=== PATIENT | male | born 1970 | race Caucasian/White ===

== ENCOUNTER 2020-03-08 10:16 | Inpatient (IN) | payer MEDICAID, SELFPAY ==
[2020-03-08 10:17] VITALS: BP 142/96; PULSE 95; RESP 18; TEMP 36.8; O2SAT 97; BMI 28.9
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
[2020-03-08] MEDS: 0.9% Normal Saline 1,000 ML 1000 ML IV (10:51)
[2020-03-08] MEDS: Ondansetron 4 MG/2 ML Vial IV (10:52)
[2020-03-08] MEDS: Morphine 4 MG/ML Syringe IV ×2 (10:52→11:40)
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
--- NOTE | 2020-03-08 10:56 | ED.RN ---
PT CONTINUES TO CARE ABOUT HIS CARE AT [place].
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
[2020-03-08] MEDS: Cefazolin 1 GM/50 ML BAG IV (11:30)
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
[2020-03-08 11:42] VITALS: BP 143/93; PULSE 83; RESP 18; TEMP 37.1; O2SAT 97; BMI 28.9
--- NOTE | 2020-03-08 11:53 | ED.RN ---
PER PT, 2 ATTEMPTS TO CONTACT MOTHER, YANELI, TO INFORM HER THAT HE IS GOING TO SURGERY. [phone], .
[2020-03-08 11:55] VITALS: BP 143/93; PULSE 83; RESP 18; TEMP 37.1; O2SAT 97
[2020-03-08 12:15] LABS: Absolute Lymphocyte Count 2.22 X10^3/uL (0.83-4.51); Absolute Neutrophil Count 5.5 X10^3/uL (2.0-7.7); Basophil# 0.04 X10^3/uL; Basophil% 0.5 % (0-1); Eosinophil# 0.06 X10^3/uL; Eosinophils% 0.7 % (0-5); Hematocrit 43.8 % (40-54); Lymphocyte # 2.22 X10^3/ul (4.0); Lymphocyte % 26.1 % (19-41); Mean Corp Hgb Conc 34.2 g/dL (32-36); Mean Corpuscular Hgb 34.2 pg (27.0-32.0); Mean Platelet Vol. 9.7 fl (6.2-12.0); Monocyte# 0.68 X10^3/uL; NRBC Flagged by Analyzer 0 % (0-5); Neutrophil # 5.49 X10^3/uL (2.7-7.7); Neutrophil % 64.6 % (47-70); Platelet Count 267 K/mm3 (150-450); RBC Distribution Width CV 13.6 % (11.6-14.6); RBC Distribution Width SD 50.1 fl (35.1-43.9); Red Blood Count 4.38 M/mm3 (4.6-6.2); White Blood Count 8.5 K/mm3 (4.4-11.0)
[2020-03-08 12:18] LABS: International Normalized Ratio 1.1; Prothrombin Time (Protime)PT. 13.4 SECONDS (11.7-14.9)
[2020-03-08 12:26] LABS: Anion Gap 5 (5-15); BUN 13 mg/dL (7-18); BUN/Creat Ratio 17.8 RATIO (10-20); Calcium,Total 8.7 mg/dL (8.5-10.1); Chloride 107 mmol/L (98-107); Creatinine, Serum 0.73 mg/dL (0.70-1.30); EST Glomerular Filtration Rate 121 mL/min (>60); Est Glom Filt Rate - Afr Amer 147 mL/min (>60); Estimated Creatinine Clearance 127.78 ml/min; Glucose 99 mg/dL (74-106); Potassium 3.7 mmol/L (3.5-5.1); Sodium Level 143 mmol/L (136-145)
[2020-03-08 12:56] LABS: ALB/GLOB Ratio 0.9 RATIO (0.9-2.4); AST(SGOT) 14 U/L (15-37); Alanine Aminotransfer ALT/SGPT 19 U/L (16-61); Albumin, Serum 3.4 g/dL (3.2-5.0); Alkaline Phosphatase 70 U/L (45-117); Globulin 3.6 g/dL (2.2-4.2)
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
[2020-03-08 14:22] VITALS: TEMP 36.7
[2020-03-08 14:43] VITALS: BMI 28.5
[2020-03-08] MEDS: Ketorolac 30 MG/ML Syringe IV (14:56)
[2020-03-08 15:04] VITALS: BP 139/73; PULSE 76; RESP 18; TEMP 36.5; O2SAT 99
[2020-03-08] MEDS: Morphine 2 MG/ML Syringe IV ×3 (15:13→21:35)
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
[2020-03-08] MEDS: oxyCODONE 5 MG Tablet PO ×2 (16:22→20:23)
[2020-03-08] MEDS: Thiamine Hydrochloride 100 MG Tablet PO (16:23)
[2020-03-08 16:25] LABS: Magnesium 2.1 mg/dL (1.6-2.6)
[2020-03-08 16:26] LABS: Amphetamine Urine VISTA NEGATIVE (<1000 ng/mL); Barbiturate Urine VISTA NEGATIVE (< 200 ng/mL); Benzodiazepine Urine VISTA NEGATIVE (< 200 ng/mL); Cocaine Urine VISTA NEGATIVE (< 300 ng/mL); Ecstacy Urine VISTA NEGATIVE (< 500 ng/mL); Methadone Urine VISTA NEGATIVE (< 300 ng/mL); PCP Urine VISTA NEGATIVE (< 25 ng/mL); THC Urine VISTA NEGATIVE (< 50 ng/mL); Vista UDS pH Range 7
[2020-03-08 16:29] LABS: Phosphorus 2.4 mg/dL (2.5-4.9)
[2020-03-08] MEDS: Na Biphos/Potassium Phosphate PACKET 1 PACKET PO ×2 (18:27→20:52)
[2020-03-08] MEDS: Cefazolin 2 GM in 0.9% Normal Saline 100 ML IV (18:28)
[2020-03-08 20:29] VITALS: BP 125/78; PULSE 73; RESP 16; TEMP 36.8; O2SAT 99
[2020-03-09] VITALS (9 sets, daily range): BP systolic 118–146; BP diastolic 63–92; PULSE 66–89; RESP 16–18; TEMP 36.3–36.8; O2SAT 98–100; BMI 28.5
[2020-03-09] MEDS: Morphine 2 MG/ML Syringe IV ×4 (00:44→15:35)
[2020-03-09] MEDS: Cefazolin 2 GM in 0.9% Normal Saline 100 ML IV ×4 (00:53→21:30)
[2020-03-09] MEDS: oxyCODONE 5 MG Tablet PO ×5 (01:49→19:26)
[2020-03-09 06:36] LABS: Absolute Lymphocyte Count 2.93 X10^3/uL (0.83-4.51); Absolute Neutrophil Count 3.4 X10^3/uL (2.0-7.7); Basophil# 0.04 X10^3/uL; Basophil% 0.6 % (0-1); Eosinophil# 0.13 X10^3/uL; Eosinophils% 1.9 % (0-5); Hematocrit 39.5 % (40-54); Hemoglobin 12.9 g/dL (13.0-16.5); Lymphocyte # 2.93 X10^3/ul (4.0); Lymphocyte % 41.9 % (19-41); Mean Corp Hgb Conc 32.7 g/dL (32-36); Mean Corpuscular Hgb 33.9 pg (27.0-32.0); Mean Corpuscular Volume 103.9 fL (80-94); Mean Platelet Vol. 9.3 fl (6.2-12.0); Monocyte% 7.1 % (0-10); NRBC Flagged by Analyzer 0 % (0-5); Neutrophil # 3.38 X10^3/uL (2.7-7.7); Neutrophil % 48.2 % (47-70); Platelet Count 237 K/mm3 (150-450); RBC Distribution Width CV 13.7 % (11.6-14.6); RBC Distribution Width SD 52.1 fl (35.1-43.9)
[2020-03-09 06:49] LABS: ALB/GLOB Ratio 0.9 RATIO (0.9-2.4); AST(SGOT) 14 U/L (15-37); Alanine Aminotransfer ALT/SGPT 19 U/L (16-61); Albumin, Serum 2.8 g/dL (3.2-5.0); Alkaline Phosphatase 63 U/L (45-117); Anion Gap 4 (5-15); BUN 16 mg/dL (7-18); BUN/Creat Ratio 20.5 RATIO (10-20); Calcium,Total 8.4 mg/dL (8.5-10.1); Chloride 104 mmol/L (98-107); Creatinine, Serum 0.78 mg/dL (0.70-1.30); EST Glomerular Filtration Rate 112 mL/min (>60); Est Glom Filt Rate - Afr Amer 136 mL/min (>60); Estimated Creatinine Clearance 119.59 ml/min; Globulin 3.2 g/dL (2.2-4.2); Glucose 108 mg/dL (74-106); Potassium 4.1 mmol/L (3.5-5.1); Sodium Level 142 mmol/L (136-145)
[2020-03-09 06:51] LABS: Prothrombin Time (Protime)PT. 12.8 SECONDS (11.7-14.9)
[2020-03-09 06:52] LABS: Partial Thromboplast Time 33.3 Seconds (24.1-36.2)
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
[2020-03-09] MEDS: 0.9% Saline Lock 10 ML Syringe IV ×3 (09:29→18:26)
[2020-03-09] MEDS: Multivitamins,Ther W-Minerals Tablet 1 TABLET PO (09:33)
[2020-03-09] MEDS: Folic Acid 1 MG Tablet PO (09:33)
[2020-03-09] MEDS: Thiamine Hydrochloride 100 MG Tablet PO ×2 (09:34→17:11)
--- NOTE | 2020-03-09 10:42 | NURSING ---
this nurse asked Dr. Nguyễn for additional 2mg ofmorphine iv for pain. Has oxycodone ordered but pt on clear liquid diet for surgery. Dr. Nguyễn said to go ahead and give oral pain medication of oxycodone not increase morphine.
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
--- NOTE | 2020-03-09 12:04 | CASEMGMT ---
Social Work Return call from [facility] and they are able to accept pt. Precert will not be started until Thursday as pt will be having surgery this afternoon. Pt does have on Negative Covid test, however, SNF will need a second test within 48 hours of discharge. Pt updated and is appreciative that he can go to [facility] and is aware that precert will need to be obtained. SW to continue to follow. Plan: [facility], [facility] pending XANDER Richard
--- NOTE | 2020-03-09 13:07 | RAD_ITS ---
STUDY: X-RAY - RIGHT FOOT CLINICAL: Male, 49 years old. IRRIGATION AND DEBRIDEMENT OF OPEN FRACTURE RIGHT FOOT IN O.R. TECHNIQUE: 4 intraoperative view(s) of the foot. COMPARISON: Comparison is made with prior examination dated March 08, 2020. FINDINGS: Intraoperative imaging provided for debridement of open fracture overlying the base of the second metatarsal. RAD/Foot min 3 Views IMPRESSION: Intraoperative imaging provided for debridement of the open fracture at the base of the second metatarsal. Electronically Signed: Marvel Esteves, at 15:05 EDT , Service support ,
[2020-03-09] MEDS: Bupivacaine Mpf 0.5% 30 ML VIAL (14:12)
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
--- NOTE | 2020-03-09 14:56 | NURSING ---
report on pt, coming back from PACU at this time.
--- NOTE | 2020-03-09 15:14 | NURSING ---
back to floor. In room. ASking for pain medication.
[2020-03-09 15:44] LABS: M R Staph aureus DNA By PCR Negative (Negative); Probe Check PASS; Specimen Processing Control PASS; Staph aureus DNA By PCR POSITIVE (Negative)
[2020-03-09] MEDS: Na Biphos/Potassium Phosphate PACKET 1 PACKET PO ×2 (17:11→21:30)
[2020-03-09] MEDS: Ensure Clear 120 ML Liquid PO (17:13)
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
[2020-03-09] MEDS: HYDROmorphone 0.5 MG/0.5 ML SYRINGE IV ×2 (18:25→21:38)
[2020-03-09] MEDS: Gabapentin 100 MG Capsule PO (18:26)
[2020-03-09] MEDS: Temazepam 15 MG Capsule PO (21:38)
[2020-03-10] MEDS: oxyCODONE 5 MG Tablet PO ×6 (01:12→23:29)
[2020-03-10 01:30] VITALS: BP 134/83; PULSE 64; RESP 18; TEMP 36.6; O2SAT 100
[2020-03-10] MEDS: HYDROmorphone 0.5 MG/0.5 ML SYRINGE IV ×3 (03:36→10:30)
[2020-03-10] MEDS: Cefazolin 2 GM in 0.9% Normal Saline 100 ML IV ×3 (05:48→21:11)
--- NOTE | 2020-03-10 05:55 | EKG12_ITS ---
Test Reason : AM EKG Blood Pressure : / mmHG Vent. Rate : 061 BPM Atrial Rate : 061 BPM P-R Int : 156 ms QRS Dur : 094 ms QT Int : 408 ms P-R-T Axes : 051 018 023 degrees QTc Int : 410 ms Normal sinus rhythm Normal ECG No previous ECGs available Confirmed by VITALIY MORELOS, NATALI ([id number]), graphics editor AMBAR REEVES ([id number]) on 03/13/2020 11:02:41 AM Referred By: ANDREW Confirmed By:NATALI BURKS MD
[2020-03-10 06:37] LABS: Absolute Lymphocyte Count 2.57 X10^3/uL (0.83-4.51); Absolute Neutrophil Count 8.7 X10^3/uL (2.0-7.7); Basophil# 0.02 X10^3/uL; Basophil% 0.2 % (0-1); Eosinophil# 0.03 X10^3/uL; Eosinophils% 0.2 % (0-5); Hemoglobin 13.6 g/dL (13.0-16.5); Lymphocyte # 2.57 X10^3/ul (4.0); Lymphocyte % 21.2 % (19-41); Mean Corp Hgb Conc 33.2 g/dL (32-36); Mean Corpuscular Hgb 34.1 pg (27.0-32.0); Mean Corpuscular Volume 102.8 fL (80-94); Mean Platelet Vol. 9.5 fl (6.2-12.0); Monocyte# 0.69 X10^3/uL; Monocyte% 5.7 % (0-10); NRBC Flagged by Analyzer 0 % (0-5); Neutrophil # 8.73 X10^3/uL (2.7-7.7); Neutrophil % 72.2 % (47-70); Platelet Count 274 K/mm3 (150-450); RBC Distribution Width SD 48.8 fl (35.1-43.9); Red Blood Count 3.99 M/mm3 (4.6-6.2); White Blood Count 12.1 K/mm3 (4.4-11.0)
[2020-03-10 07:20] LABS: ALB/GLOB Ratio 0.8 RATIO (0.9-2.4); AST(SGOT) 15 U/L (15-37); Alanine Aminotransfer ALT/SGPT 20 U/L (16-61); Albumin, Serum 2.9 g/dL (3.2-5.0); Alkaline Phosphatase 67 U/L (45-117); Anion Gap 5 (5-15); BUN 14 mg/dL (7-18); BUN/Creat Ratio 21.1 RATIO (10-20); Calcium,Total 8.5 mg/dL (8.5-10.1); Chloride 102 mmol/L (98-107); Creatinine, Serum 0.66 mg/dL (0.70-1.30); EST Glomerular Filtration Rate 135 mL/min (>60); Est Glom Filt Rate - Afr Amer 164 mL/min (>60); Estimated Creatinine Clearance 141.33 ml/min; Globulin 3.6 g/dL (2.2-4.2); Glucose 130 mg/dL (74-106); Potassium 4.4 mmol/L (3.5-5.1); Protein, Total 6.5 g/dL (6.4-8.2); Sodium Level 138 mmol/L (136-145)
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
[2020-03-10 08:00] VITALS: BP 131/84; PULSE 71; RESP 16; TEMP 36.6; O2SAT 98
[2020-03-10] MEDS: 0.9% Saline Lock 10 ML Syringe IV ×4 (08:33→18:10)
[2020-03-10] MEDS: Enoxaparin 40 MG/0.4 ML Syringe SC (08:35)
[2020-03-10] MEDS: Gabapentin 100 MG Capsule PO ×3 (08:35→18:10)
[2020-03-10] MEDS: Ensure Clear 120 ML Liquid PO ×2 (08:35→13:35)
[2020-03-10] MEDS: Folic Acid 1 MG Tablet PO (08:36)
[2020-03-10] MEDS: Thiamine Hydrochloride 100 MG Tablet PO ×2 (08:36→18:11)
[2020-03-10] MEDS: Multivitamins,Ther W-Minerals Tablet 1 TABLET PO (08:36)
[2020-03-10] MEDS: Na Biphos/Potassium Phosphate PACKET 1 PACKET PO (08:36)
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
[2020-03-10] MEDS: HYDROmorphone 1 MG/ML Syringe IV ×3 (13:39→21:11)
[2020-03-10 13:49] VITALS: BP 134/67; PULSE 86; RESP 18; TEMP 36.6; O2SAT 98
[2020-03-10 21:06] VITALS: BP 145/74; PULSE 86; RESP 18; TEMP 36.4; O2SAT 97
[2020-03-10 21:15] VITALS: PULSE 86; RESP 18; O2SAT 97
[2020-03-10] MEDS: Temazepam 15 MG Capsule PO (23:29)
[2020-03-11] MEDS: HYDROmorphone 1 MG/ML Syringe IV ×4 (00:14→09:57)
[2020-03-11 03:07] VITALS: BP 122/72; PULSE 74; RESP 16; TEMP 36.5; O2SAT 98
[2020-03-11 04:00] VITALS: PULSE 74
[2020-03-11] MEDS: oxyCODONE 5 MG Tablet PO ×5 (04:17→21:37)
[2020-03-11] MEDS: Cefazolin 2 GM in 0.9% Normal Saline 100 ML IV (05:15)
[2020-03-11 06:01] LABS: Absolute Lymphocyte Count 3.34 X10^3/uL (0.83-4.51); Absolute Neutrophil Count 4.1 X10^3/uL (2.0-7.7); Basophil# 0.05 X10^3/uL; Basophil% 0.6 % (0-1); Eosinophils% 2.4 % (0-5); Hematocrit 41.2 % (40-54); Hemoglobin 13.7 g/dL (13.0-16.5); Lymphocyte # 3.34 X10^3/ul (4.0); Lymphocyte % 40.4 % (19-41); Mean Corp Hgb Conc 33.3 g/dL (32-36); Mean Corpuscular Hgb 33.9 pg (27.0-32.0); Mean Platelet Vol. 9.2 fl (6.2-12.0); Monocyte# 0.57 X10^3/uL; Monocyte% 6.9 % (0-10); NRBC Flagged by Analyzer 0 % (0-5); Neutrophil # 4.06 X10^3/uL (2.7-7.7); Neutrophil % 49.1 % (47-70); Platelet Count 286 K/mm3 (150-450); RBC Distribution Width CV 13.3 % (11.6-14.6); RBC Distribution Width SD 50.6 fl (35.1-43.9); Red Blood Count 4.04 M/mm3 (4.6-6.2); White Blood Count 8.3 K/mm3 (4.4-11.0)
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
[2020-03-11 07:14] LABS: ALB/GLOB Ratio 0.9 RATIO (0.9-2.4); AST(SGOT) 18 U/L (15-37); Alanine Aminotransfer ALT/SGPT 20 U/L (16-61); Albumin, Serum 2.9 g/dL (3.2-5.0); Alkaline Phosphatase 61 U/L (45-117); Anion Gap 6 (5-15); BUN 14 mg/dL (7-18); BUN/Creat Ratio 20.5 RATIO (10-20); Calcium,Total 8.2 mg/dL (8.5-10.1); Chloride 101 mmol/L (98-107); Creatinine, Serum 0.68 mg/dL (0.70-1.30); EST Glomerular Filtration Rate 131 mL/min (>60); Est Glom Filt Rate - Afr Amer 158 mL/min (>60); Estimated Creatinine Clearance 137.17 ml/min; Globulin 3.3 g/dL (2.2-4.2); Glucose 100 mg/dL (74-106); Protein, Total 6.2 g/dL (6.4-8.2); Sodium Level 137 mmol/L (136-145)
[2020-03-11] MEDS: Gabapentin 100 MG Capsule PO (07:43)
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
[2020-03-11] MEDS: Thiamine Hydrochloride 100 MG Tablet PO (08:31)
[2020-03-11] MEDS: Folic Acid 1 MG Tablet PO (08:31)
[2020-03-11] MEDS: Multivitamins,Ther W-Minerals Tablet 1 TABLET PO (08:31)
[2020-03-11] MEDS: Enoxaparin 40 MG/0.4 ML Syringe SC (08:32)
[2020-03-11 08:50] VITALS: BP 131/77; PULSE 71; RESP 18; TEMP 36.7; O2SAT 98
[2020-03-11] MEDS: 0.9% Saline Lock 10 ML Syringe IV ×3 (09:57→18:59)
[2020-03-11] MEDS: Gabapentin 100 MG Capsule 200 MG PO ×2 (13:24→17:20)
[2020-03-11 13:26] VITALS: BP 129/69; PULSE 79; RESP 18; TEMP 36.6; O2SAT 98
[2020-03-11] MEDS: HYDROmorphone 0.5 MG/0.5 ML SYRINGE IV ×2 (15:31→18:58)
[2020-03-11 21:26] VITALS: BP 136/66; PULSE 81; RESP 18; TEMP 36.6; O2SAT 96
[2020-03-11 21:35] VITALS: PULSE 81; RESP 18; O2SAT 96
[2020-03-11] MEDS: Temazepam 15 MG Capsule PO (21:37)
[2020-03-12 01:44] VITALS: BP 117/79; PULSE 83; RESP 16; TEMP 36.5; O2SAT 98
[2020-03-12] MEDS: oxyCODONE 5 MG Tablet PO ×7 (01:46→23:00)
[2020-03-12 06:03] LABS: Absolute Lymphocyte Count 3.34 X10^3/uL (0.83-4.51); Absolute Neutrophil Count 3.3 X10^3/uL (2.0-7.7); Basophil# 0.06 X10^3/uL; Basophil% 0.8 % (0-1); Eosinophil# 0.21 X10^3/uL; Eosinophils% 2.7 % (0-5); Hematocrit 43.6 % (40-54); Hemoglobin 14.5 g/dL (13.0-16.5); Lymphocyte # 3.34 X10^3/ul (4.0); Lymphocyte % 43.4 % (19-41); Mean Corp Hgb Conc 33.3 g/dL (32-36); Mean Corpuscular Hgb 33.9 pg (27.0-32.0); Mean Corpuscular Volume 101.9 fL (80-94); Mean Platelet Vol. 9.2 fl (6.2-12.0); Monocyte# 0.68 X10^3/uL; Monocyte% 8.8 % (0-10); NRBC Flagged by Analyzer 0 % (0-5); Neutrophil # 3.33 X10^3/uL (2.7-7.7); Neutrophil % 43.3 % (47-70); Platelet Count 298 K/mm3 (150-450); RBC Distribution Width CV 13.1 % (11.6-14.6); RBC Distribution Width SD 49.7 fl (35.1-43.9); Red Blood Count 4.28 M/mm3 (4.6-6.2); White Blood Count 7.7 K/mm3 (4.4-11.0)
[2020-03-12 06:34] LABS: ALB/GLOB Ratio 0.9 RATIO (0.9-2.4); AST(SGOT) 21 U/L (15-37); Alanine Aminotransfer ALT/SGPT 26 U/L (16-61); Albumin, Serum 3.1 g/dL (3.2-5.0); Alkaline Phosphatase 64 U/L (45-117); Anion Gap 4 (5-15); BUN 18 mg/dL (7-18); BUN/Creat Ratio 26.2 RATIO (10-20); Calcium,Total 9.3 mg/dL (8.5-10.1); Chloride 98 mmol/L (98-107); Creatinine, Serum 0.69 mg/dL (0.70-1.30); EST Glomerular Filtration Rate 130 mL/min (>60); Est Glom Filt Rate - Afr Amer 157 mL/min (>60); Estimated Creatinine Clearance 135.19 ml/min; Globulin 3.6 g/dL (2.2-4.2); Glucose 84 mg/dL (74-106); Protein, Total 6.7 g/dL (6.4-8.2); Sodium Level 135 mmol/L (136-145)
[2020-03-12 07:56] VITALS: BP 130/86; PULSE 79; RESP 16; TEMP 36.9; O2SAT 99
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
[2020-03-12] MEDS: Gabapentin 100 MG Capsule 200 MG PO ×3 (08:20→17:16)
[2020-03-12] MEDS: Multivitamins,Ther W-Minerals Tablet 1 TABLET PO (08:20)
--- NOTE | 2020-03-12 10:12 | CASEMGMT ---
Addendum entered by Shefali Thomas 03/12/20 13:21: AMADOU placed a call to Roxy at [facility]. Roxy confirms she received updated clinicals and will submit for pre-cert. Roxy confirms she needs a second COVID test within 24 hours of when pt discharges. Roxy states she thinks she will get pre-cert by tomorrow so if COVID test is ordered today, it will be good for pt to discharge tomorrow if pre-cert is obtained. AMADOU updated charge nurse. Original Note: Social Work Note AMADOU faxed updated clinicals to Lizy Marie, wrote on fax coversheet to submit for pre-cert. Plan: Lizy Marie pending pre-cert Shefali Thomas [employer], [employer]
[2020-03-12] MEDS: Enoxaparin 40 MG/0.4 ML Syringe SC (10:40)
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
--- NOTE | 2020-03-12 13:56 | NURSING ---
wound photo: right dorsal foot
--- NOTE | 2020-03-12 13:57 | NURSING ---
wound photo: right plantar foot
[2020-03-12 14:33] VITALS: BP 128/76; PULSE 91; RESP 16; TEMP 36.6; O2SAT 96
--- NOTE | 2020-03-12 15:53 | CASEMGMT ---
Social Work Note AMADOU received call from Roxy at [facility] stating pt's insurance just requires 24 hour notice for pt to discharge so pt will be able to discharge tomorrow regardless. SW updated that pt is requesting to speak to this worker. SW in to speak with pt. AMADOU introduced self and role at [facility]. Pt is alert and orientated x3. Pt states I was told that I was going to get out today and I am still here. AMADOU explained that [facility] has to wait for insurance and they are able to take pt tomorrow so pt will get out tomorrow. Pt states they also sent out another COVID test and I was told it was going to be sent out and that could take a few days to get back. SW updated pt that [facility] should be doing the onsite testing as it is SNF placement. Pt states I was just told a few minutes ago it would be a few days. SW informed pt that this worker will check with charge nurse. AMADOU spoke with Charge Nurse. Charge Nurse states pt should get onsite done, should have results today. SW back in to update pt of this. SW updated pt that he should get out tomorrow. Pt states my niece works tomorrow and won't be able to transport until Thursday, can I stay until then? SW explained that pt cannot just stay at [facility] for transport and transport can be arranged for pt. Pt states his niece will go to [place] and get his belongings. Pt denied additional needs or concerns at this time. Plan: [facility] skilled tomorrow Shefali Thomas [employer] WORKER, PHARMACY LABORATORY TECHNICIAN
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
[2020-03-12 20:40] VITALS: BP 120/85; PULSE 83; RESP 20; TEMP 36.3; O2SAT 99
[2020-03-12] MEDS: 0.9% Saline Lock 10 ML Syringe IV (23:01)
[2020-03-12] MEDS: Temazepam 15 MG Capsule PO (23:07)
[2020-03-13] MEDS: 0.9% Saline Lock 10 ML Syringe IV (03:21)
[2020-03-13] MEDS: oxyCODONE 5 MG Tablet PO ×3 (03:21→12:08)
[2020-03-13 03:22] VITALS: BP 119/71; PULSE 85; RESP 20; TEMP 36.3; O2SAT 98
[2020-03-13 07:57] VITALS: BP 123/77; PULSE 81; RESP 18; TEMP 36.4; O2SAT 99
[2020-03-13] MEDS: Enoxaparin 40 MG/0.4 ML Syringe SC (08:03)
[2020-03-13] MEDS: Gabapentin 100 MG Capsule 200 MG PO ×2 (08:03→12:09)
[2020-03-13] MEDS: Multivitamins,Ther W-Minerals Tablet 1 TABLET PO (08:03)
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
--- NOTE | 2020-03-13 08:59 | NURSING ---
Talked with Dr Esquivel. plans to come in for dressing change around noon today. will assist Dr Esquivel. pt is also asking for more pain medication. states the pain medication is not working well. will discuss with Dr Esquivel. no further needs voiced at this time.
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
--- NOTE | 2020-03-13 12:30 | DCINST_ITS ---
Discharge Activity: May Not Drive, Use Walker, Use Crutches Weight Bearing Status: No weight bearing - Strict nonweightbearing right foot Keep extremity elevated above heart level: Right Leg - Keep right foot elevated for at least 50 minutes of every hour Call your doctor if your incision/area has: Continuous Slow Oozing, Sudden Increased Bleeding, Increased Pain/ Swelling, Increased Redness, Foul Smelling Discharge Call your doctor if you observe: Fever of 101 or Higher, Shortness of breath, Chest pain, Calf discomfort, Uncontrolled pain Cleanse incision/area with: - - Right foot wound care: Clease wounds w/ normal saline solution. Apply adaptic with overlying Aquacel Ag, with overlying gauze, kerlix and conor bandage. Change daily. Allergies/Adverse Reactions: Allergies No Known Allergies Allergy (Verified 03/08/20 10:17) Medications to take at Discharge Gabapentin [Neurontin] 100 mg PO TIDCM 10 Days #30 cap 03/11/20 Amoxicillin/Potassium Clav [Augmentin 875-125 Tablet] 1 ea PO Q12H #14 tab 03/13/20 Ibuprofen 600 mg PO Q6H 4 Days #40 tab 03/13/20 Oxycodone HCl/Acetaminophen [Percocet 5/325] 1 - 2 tab PO Q4H PRN PRN #30 tab 03/13/20 The following prescriptions were given: Amoxicillin/Potassium Clav [Augmentin 875-125 Tablet] 1 ea PO Q12H #14 tab Prescription Printed Ibuprofen 600 mg PO Q6H 4 Days #40 tab Prescription Printed Gabapentin [Neurontin] 100 mg PO TIDCM 10 Days #30 cap Prescription Printed Oxycodone HCl/Acetaminophen [Percocet 5/325] 1 - 2 tab PO Q4H PRN PRN #30 tab PRN Reason: Pain Prescription Printed Primary Care Physician: ABDI DECKER [Other] Test Results: Test results from this visit will be discussed in further detail at your follow- up appointment, if applicable. Please Follow Up With: Jovana Cardoso DPM When: 1 week, sooner if needed, call office at [phone] for appointment
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
[2020-03-13 14:00] VITALS: BP 120/78; PULSE 80; RESP 18; TEMP 36.4; O2SAT 98
[2020-03-13 14:09] LABS: M R Staph aureus DNA By PCR Negative (Negative); Probe Check PASS; Specimen Processing Control PASS; Staph aureus DNA By PCR NEGATIVE (Negative)
--- NOTE | 2020-03-13 14:15 | CASEMGMT ---
Social Work Note Pt is able to discharge to [facility] today. Pt's second COVID test is back and is negative. AMADOU faxed discharge paperwork to [facility] including transfer to extended care facility, signed medication list, scripts, second negative COVID test and COVID screening tool. Original in SNF folder and copy on pt's chart. AMADOU completed [facility] in [facility]. Original in SNF folder and copy on pt's chart. AMADOU spoke with Roxy at [facility]. AMADOU asked Roxy if [facility] is able to transport. Roxy states they are able to transport pt at around 4:00pm. AMADOU updated RN and updated pt on discharge and transportation time. Plan: [facility] Skilled today with [facility] transporting pt around 4:00pm Shefali Thomas [employer]PUT[employer] SCI[employer] PROFESS[employer], [employer]
== END 2020-03-13 15:47 | disposition skilled nursing facility (03) | DRG 364 ==
LOC: ED 11:17 → MS3 12:20
PROVIDERS: Anesthesiology; Family Medicine; Podiatrist; Admitting Provider Podiatrist; Emergency Provider Emergency Medicine; Visit Provider Hospitalist
PROC: 0KBV0ZZ Excision of Right Foot Muscle, Open Approach (ICD-10-PCS; principal; 2020-03-09 13:15)
DX: S91.331A Puncture wound without foreign body, right foot, initial encounter (principal); S92.32 Fracture of second metatarsal bone; L03.115 Cellulitis of right lower limb; R03.0 Elevated blood-pressure reading, without diagnosis of hypertension; F10.10 Alcohol abuse, uncomplicated; F17.210 Nicotine dependence, cigarettes, uncomplicated; W34.00XA Accidental discharge from unspecified firearms or gun, initial encounter; Z59.0 Homelessness
CPT/HCPCS: 36415; 73630; 76000; 80053; 80307; 80320; 83735; 84100; 85025; 85610; 85730; 87015; 87070; 87075; 87102; 87116; 87205; 87206; 87635; 87640; 93005; 97110; 97116; 97162; 97166; 97530; 97802; 99285; 99406; G2023; J7030; J7050; A4216; G0480; J2405; U0003